=== PATIENT | female | born 1995 | race African-American/Black ===

== ENCOUNTER 2024-01-04 22:00 | Emergency (ER) | payer SELFPAY ==
[2024-01-04] MEDS ORDERED: traMADol HCl 50 MG TAB ONE (22:49)
[2024-01-04] MEDS ORDERED: Ketorolac Tromethamine 60 MG/2 ML VIAL ONE (22:49)
[2024-01-04] MEDS ORDERED: Cephalexin 250 MG CAP ONE (22:49)
[2024-01-04] MEDS ORDERED: Lidocaine 2% Viscous 100 ML BOTTLE ONE (22:58)
== END 2024-01-04 23:00 | disposition home or self-care (01) ==
LOC: NAV ERS 22:00
DX: K04.7 Periapical abscess without sinus (principal); F17.290 Nicotine dependence, other tobacco product, uncomplicated; F17.210 Nicotine dependence, cigarettes, uncomplicated
CPT/HCPCS: 96372; 99282; J1885